=== PATIENT | female | born 1985 | race African-American/Black ===

== ENCOUNTER 2020-07-22 09:29 | Day surgery (SDC) | payer MEDICAID ==
[~2020-07-22] VITALS: Ht 180.3 cm; Wt 119.1 kg
[~2020-07-22 09:29] MED LIST: SODIUM CHLORIDE 0.9% 1,000 ML IV ONE; SODIUM CHLORIDE 0.9% 1,000 ML ONE
[2020-07-22] MEDS ORDERED: PROPOFOL 1% 20 ML VIAL IVP ONE (09:30)
[2020-07-22] MEDS ORDERED: FAMO20 PO (10:45)
== END 2020-07-22 13:00 | disposition home or self-care (01) ==
LOC: SURGERY 09:29
PROVIDERS: ATTEND Internal Medicine Gastroenterology
DX: K29.50 Unspecified chronic gastritis without bleeding (principal); K21.9 Gastro-esophageal reflux disease without esophagitis; K59.09 Other constipation; Z98.890 Other specified postprocedural states; Z80.0 Family history of malignant neoplasm of digestive organs; Z79.899 Other long term (current) drug therapy; Z20.828 Contact with and (suspected) exposure to other viral communicable diseases
CPT/HCPCS: 43239; 84703; 87635; 88305; 88312; 88313; C1769; J2704; J7030